=== PATIENT | male | born 1960 | race Caucasian/White ===

== ENCOUNTER 2022-03-18 01:02 | Day surgery (SDC) | payer OTHER, SELFPAY ==
[2022-03-13 12:34] VITALS: BMI 29.0
--- NOTE | 2022-03-13 12:40 | PC.NURSE ---
Report to the Outpatient Waiting Room, entrance under the green pavilion located off [facility], at time 0630 on date 03/18/22. Planned Procedure Time: 0830. Time changes happen often and if your time is changed the preop area will call you the afternoon before. - You and your visitor will be asked to self-screen and do not enter if you have any COVID symptoms. - We encourage only one visitor and NO visitors under age 16 are allowed at this time. Your visitor will receive communication by the phone number that is given day of service. - The patient visitor is requested to social distance or may leave the building when not with patient due to restrictions. - A mask is OPTIONAL within the hospital. Patients may have clear liquids (water, carbonated beverages, clear teas, apple juice) until 3 hours prior to surgery with a maximum of 20 ounces. - No food from midnight until time of surgery Take the following medications with a SIP of water the morning of surgery: NONE Medications to discontinue per physician: VITAMIN Date to take last dose: 03/14/22 Please no make-up, nail pashto, hairspray, perfume, deodorant, or body powder the day of surgery. No jewelry (including any body piercings) or valuables the day of surgery, leave them at home. Please take a shower or bath the night before, or the morning of, surgery with an antibacterial soap. Wear comfortable, loose fitting clothing. - Jewelry must be removed prior to entering the operating room. Rings and piercings that are not removed may be cut off. - The hospital will not accept responsibility for valuables. - Please leave all valuables, including medications, at home the day of surgery. If you are going home after surgery, a licensed hire car driver must drive you home. - NO public transportation without another adult. - We recommend that an adult stay with you for 24 hours following discharge. - We also recommend that you do not drive, make important decision, drink alcoholic beverages, or take any drugs that were not prescribed by your health care provider for at least 24 hours after your discharge time. Follow any additional instructions given to you from your surgeon. If you or anyone in your household have experienced Covid symptoms in the past week, please notify your surgeon or the nurse liaison at the phone number below for possible testing. Telephone instructions given to PT - RONI HODGE and asked if any additional questions and then verbalized understanding. Patient advised to call surgeon office or pre surgery nurse liaison [phone] if any additional questions.
--- NOTE | 2022-03-15 13:53 | WPDANESEPPF ---
Anes - Initial Pre Proc Eval Procedure: Operation Date: 03/18/22 08:30 Proposed Procedures p Right Hallux Metatarsophalangeal Arthrodesis - Joe Kumar MD <Shane Lynn MD - Last Filed: 03/18/22 08:24> Date/Time: 03/15/22 13:53 <Shane Lynn MD - Last Filed: 03/18/22 08:24> Surgeon: Joe Kumar MD <Shane Lynn MD - Last Filed: 03/18/22 08:24> Pre Op Diagnosis: right hallux rigidus, arthritis, sesamoiditis <Shane Lynn MD - Last Filed: 03/18/22 08:24> Patient Data Age: 61 Gender: M Height: 1.68 m Weight: 81.65 kg <Shane Lynn MD - Last Filed: 03/18/22 08:24> Allergies Allergy/AdvReac Type Severity Reaction Status Date / Time Penicillins Allergy Severe Rash Verified 03/18/22 06:37 <Shane Lynn MD - Last Filed: 03/18/22 08:24> Home Medications Medication Instructions Recorded Confirmed Type multivitamin 1 tablet PO DAILY 03/05/22 03/18/22 History pantoprazole 40 mg tablet,delayed 40 mg PO DAILY 03/05/22 03/18/22 History release ropinirole 1 mg tablet 1 mg PO DAILY 03/05/22 03/18/22 History <Shane Lynn MD - Last Filed: 03/18/22 08:24> Patient hx anesthesia problems: none <Sean Caceres MD - Last Filed: 03/18/22 07:43> Family hx anesthesia problems: none <Sean Caceres MD - Last Filed: 03/18/22 07:43> Results Review: All pre-operative results and documents have been reviewed as part of the pre-operative evaluation. <Shane Lynn MD - Last Filed: 03/18/22 08:24> PMFSH Past Medical History Medical History: Medical History Hallux rigidus of left foot Hallux rigidus of right foot Hyperlipidemia Hypertension Restless leg syndrome <Shane Lynn MD - Last Filed: 03/18/22 08:24> Surgical History Surgical History: Surgical History H/O foot surgery Right foot MTP bone spurs 2004 Left foot MTP bone spurs [address] Chiquis Marroquin. History of knee surgery [address] Zuniga History of weight loss surgery Gastric sleeve [address] Interiano <Shane Lynn MD - Last Filed: 03/18/22 08:24> Family History Family History: Family History Other Diabetes mellitus HLD (hyperlipidemia) Heart disease Liver cancer Malignant neoplasm of prostate <Shane Lynn MD - Last Filed: 03/18/22 08:24> Social History Social History: Social History Smoking status: Never smoker Alcohol intake: current Drinks per week: 3 Alcohol use details: WEEKENDS Substance use: never Substance use type: does not use Living arrangements: with family Gender identity (if verbalized by the patient): Male Spiritual care concerns: No <Shane Lynn MD - Last Filed: 03/18/22 08:24> Anes - Eval Final PreProcedure Day of Procedure 03/15/22 13:53 <Shane Lynn MD - Last Filed: 03/18/22 08:24> Patient weight: overweight <Sean Caceres MD - Last Filed: 03/18/22 07:43> Heart: regular rate and rhythm <Sean Caceres MD - Last Filed: 03/18/22 07:43> Lungs: clear to auscultation <Sean Caceres MD - Last Filed: 03/18/22 07:43> Airway: Mallampati scale class II <Sean Caceres MD - Last Filed: 03/18/22 07:43> Neurological: alert and oriented <Sean Caceres MD - Last Filed: 03/18/22 07:43> Last oral intake: >/= 8 hours <Sean Caceres MD - Last Filed: 03/18/22 07:43> ASA classification: III <Sean Caceres MD - Last Filed: 03/18/22 07:43> Emergent: no <Sean Caceres MD - Last Filed: 03/18/22 07:43> Anesthetic plan: proceed <Sean Caceres MD - Last Filed: 03/18/22 07:43> Anesthesia type and monitoring:
[2022-03-18] VITALS (9 sets, daily range): BP systolic 101–144; BP diastolic 61–88; PULSE 50–63; RESP 11–18; TEMP 36.3–36.5; O2SAT 98–100
--- NOTE | ~2022-03-18 | XR_ITS ---
EXAMINATION: XR surgery orthopedic DATE: 03/18/2022 10:35 INDICATION: Right foot arthrodesis at the first metatarsophalangeal joint TECHNIQUE: 2 fluoroscopic images of the right forefoot were obtained during procedure performed by Dr Chiquita Kumar. Radiologist was not present for the imaging or procedure. The amount of fluoroscopy time u sed during this procedure was 0.1 minutes. COMPARISON: None. FINDINGS: First metatarsophalangeal arthrodesis with compression screw and dorsal plate and screw fixation. Exp ected reticular soft tissue gas at the operative bed. Alignment remains essentially anatomic. No frac ture. Remaining joint spaces are normal. IMPRESSION: 1. Expected appearance of a first metatarsophalangeal arthrodesis. See procedure note for further det ail. Reviewed, dictated and finalized at location B. IMPRESSION: 1. Expected appearance of a first metatarsophalangeal arthrodesis. See procedur e note for further detail.
[2022-03-18] MEDS: ACETAMINOPHEN 500 MG TABLET 1000 MG PO (06:56)
--- NOTE | 2022-03-18 07:07 | WPDHPUPDATE1 ---
History and Physical Update Update Date/Time: 03/18/22 07:07 History and Physical has been reviewed, including an updated exam of the patient. There are NO changes in the patient's condition. Risks, benefits, and alternatives have been discussed and questions answered. Patient agrees to proceed with procedure.
[2022-03-18] MEDS: LACTATED RINGERS 1,000 ML 30 ML IV CONT ×2 (07:21→10:08)
[2022-03-18] MEDS: KETOROLAC 15 MG/ML VIAL (*BKC) IV PUSH (07:22)
[2022-03-18] MEDS: ceFAZolin 2 GM/D5W 50 ML 2 GM/50 ML BAG IVPB (08:30)
[2022-03-18] MEDS: BUPIVACAINE HCL 0.5% PF 30 ML VIAL INFILTRATE (09:02)
--- NOTE | 2022-03-18 10:21 | P.OP_ITS ---
Procedure Note - Detailed Date of Procedure 03/18/22 Pre-op Diagnosis right hallux rigidus, arthritis, sesamoiditis Post-op Diagnosis Same Procedure Performed Right hallux metatarsophalangeal arthrodesis Surgeon Joe Kumar MD Finisher Card Tender 1st civil engineering assistant Anesthesia General Indications 61-year-old gentleman with right hallux metatarsophalangeal arthritis. Failed cheilectomy previous surgery. Pain with daily weight-bearing and activity. Presents for operative treatment. Description of Procedure Patient identified in the preoperative holding. Informed consent given. Operative extremity marked. Patient received intravenous antibiotics. Patient brought to the operating room where underwent general anesthetic by anesthesia team. Positioned supine on operating room table. Time-out performed confirming the patient, site of the surgery and the plan. Right foot prepped draped usual sterile surgical fashion using a ChloraPrep skin solution. Foot and ankle exsanguinated and a calf tourniquet inflated to 225 mmHg. Previous incision over the hallux utilized and made with a 15 blade knife. Hemostasis controlled electrocautery. Extensor hallucis tendon retracted laterally and a dorsal capsulotomy performed in line with the longitudinal skin incision. Soft tissue released off of the metatarsal to expose the joint. Extensive scar and fibrosis of the joint noted. Rongeur used to remove excess osteophytes. Reaming of the joint and performed the Arthrex joint preparation reamers. Guide pin placed metatarsal and reaming performed size 18 mm. Guide pin then placed in the proximal phalanx and reaming performed to a size 18 mm. Wound thoroughly irrigated and debris removed. Joint then aligned and provisionally pinned. Alignment checked with image intensification 3rd fixation achieved with a dorsal locking plate with compression and a 3 mm lag screw. Image intensification confirmed final position. Wound irrigated and capsule closed with 0 Vicryl interrupted suture. Subcutaneous tissue repaired with 3-0 Monocryl interrupted suture and skin repaired with 4-0 nylon running suture. Sterile dressing applied. The patient was then woken from anesthesia, extubated and taken to the recovery room in stable condition. All sponge, needle, instrument counts were correct at the end of the case. Implants Arthrex hallux metatarsophalangeal arthrodesis plate with mixed 3.0 plain and locking screws. 3.0 mm lag screw compression. Estimated Blood Loss -5.0 Tourniquet Time 67 Drains No Packing No Pathology None sent Complications None Condition Stable Disposition PACU
--- NOTE | 2022-03-18 10:54 | SUR.PHASEI ---
1045: Simple mask removed.
[2022-03-18] MEDS: oxyCODONE HCL (*CRX) 5 MG TAB IR PO (11:47)
--- NOTE | 2022-03-18 12:36 | SUR.PHASEII ---
POST-OP SHOE REQUESTED FROM [employer]. CRUTCHES GIVEN TO PATIENT.
== END 2022-03-18 13:00 | disposition home or self-care (01) ==
PROVIDERS: PCP Family Medicine; Visit Provider Orthopaedic Surgery
PROC: (CPT 28750; principal; 2022-03-18 08:30)
DX: M20.21 Hallux rigidus, right foot (principal); M19.071 Primary osteoarthritis, right ankle and foot; M25.871 Other specified joint disorders, right ankle and foot; G25.81 Restless legs syndrome; Z98.84 Bariatric surgery status
CPT/HCPCS: 28750; 99199; A9270; J0690; J1100; J1885; J2250; J2370; J2405; J2704; J3010; J7120

== ENCOUNTER 2022-04-25 00:36 | Day surgery (SDC) | payer OTHER, SELFPAY ==
--- NOTE | 2022-04-15 14:53 | PC.NURSE ---
Report to the Outpatient Waiting Room, entrance under the green pavilion located off [facility], at time 0600 on date 04/25/22. Planned Procedure Time: 0800. Time changes happen often and if your time is changed the preop area will call you the afternoon before. - You and your visitor will be asked to self-screen and do not enter if you have any COVID symptoms. - Only one visitor is requested with a max of two and NO children visitors are allowed at this time. - The patient visitor may be requested to leave or wait in car when not with patient due to distancing restrictions. - A mask is optional within the hospital. Patients may have clear liquids (water, carbonated beverages, clear teas, apple juice) until 3 hours prior to surgery with a maximum of 20 ounces. - No food from midnight until time of surgery Take the following medications with a SIP of water the morning of surgery: NONE Medications to discontinue per physician: VITAMIN Date to take last dose: 04/21/22 Please no make-up, nail estonian, hairspray, perfume, deodorant, or body powder the day of surgery. No jewelry (including any body piercings) or valuables the day of surgery, leave them at home. Please take a shower or bath the night before, or the morning of, surgery with an antibacterial soap. Wear comfortable, loose fitting clothing. - Jewelry must be removed prior to entering the operating room. Rings and piercings that are not removed may be cut off. - The hospital will not accept responsibility for valuables. - Please leave all valuables, including medications, at home the day of surgery. If you are going home after surgery, a licensed bus driver supervisor must drive you home. - NO public transportation without another adult if you receive anesthesia. - We recommend that an adult stay with you for 24 hours following discharge. - We also recommend that you do not drive, make important decision, drink alcoholic beverages, or take any drugs that were not prescribed by your health care provider for at least 24 hours after your discharge time. Follow any additional instructions given to you from your surgeon. If you or anyone in your household have experienced Covid symptoms in the past week, please notify your surgeon or the nurse liaison at the phone number below for possible testing. Telephone instructions given to PT - RONI HODGE and asked if any additional questions and then verbalized understanding. Patient advised to call surgeon office or pre surgery nurse liaison [phone] if any additional questions.
[2022-04-15 14:55] VITALS: BMI 29.1
[2022-04-25] VITALS (8 sets, daily range): BP systolic 106–146; BP diastolic 63–82; PULSE 64–77; RESP 12–20; TEMP 36.8–36.9; O2SAT 100
--- NOTE | ~2022-04-25 | XR_ITS ---
XR surgery orthopedic DATE: 04/25/2022 09:46 INDICATION: Metatarsophalangeal arthrodesis at first digit TECHNIQUE: 8 cm total fluoroscopy excluded on 0.7790 cGycm2 total DAP COMPARISON: None FINDINGS: Status post surgical arthrodesis at first metatarsophalangeal joint with dorsal plate and s crews an additional screw. IMPRESSION: First metatarsophalangeal joint arthrodesis Reviewed, dictated and finalized at Location A. Reviewed, dictated and finalized at location B. S CATCHER
[2022-04-25] MEDS: ACETAMINOPHEN 500 MG TABLET 1000 MG PO (06:30)
[2022-04-25] MEDS: LACTATED RINGERS 1,000 ML 30 ML IV CONT ×2 (06:30→10:02)
[2022-04-25] MEDS: KETOROLAC 15 MG/ML VIAL (*BKC) IV PUSH (06:32)
--- NOTE | 2022-04-25 06:36 | WPDHPUPDATE1 ---
History and Physical Update Update Date/Time: 04/25/22 06:36 History and Physical has been reviewed, including an updated exam of the patient. There are NO changes in the patient's condition. Risks, benefits, and alternatives have been discussed and questions answered. Patient agrees to proceed with procedure.
--- NOTE | 2022-04-25 06:47 | WPDANESEPPF ---
Anes - Initial Pre Proc Eval Procedure: Operation Date: 04/25/22 08:00 Proposed Procedures p Left Foot Hallux Metatarsophalangeal Arthrodesis - Joe Kumar MD Date/Time: 04/25/22 06:47 Surgeon: Joe Kumar MD Pre Op Diagnosis: left hallux rigidus, arthritis, sesamoiditis Patient Data Age: 62 Gender: M Height: 1.68 m Weight: 81.9 kg Allergies Allergy/AdvReac Type Severity Reaction Status Date / Time Penicillins Allergy Severe Rash Verified 04/15/22 14:51 Home Medications Medication Instructions Recorded Confirmed Type multivitamin 1 tablet PO DAILY 03/05/22 04/15/22 History pantoprazole 40 mg tablet,delayed 40 mg PO DAILY 03/05/22 04/15/22 History release ropinirole 1 mg tablet 1 mg PO DAILY 03/05/22 04/15/22 History Patient hx anesthesia problems: none Family hx anesthesia problems: none Results Review: All pre-operative results and documents have been reviewed as part of the pre-operative evaluation. [facility] Past Medical History Medical History (Updated 04/25/22 @ 06:48 by Sean Caceres MD) Encounter for postoperative care Hallux rigidus of left foot Hallux rigidus of right foot Restless leg syndrome Surgical History Surgical History H/O foot surgery Right foot MTP bone spurs 2004 Left foot MTP bone spurs [address] Chiquis Marroquin. History of knee surgery [address] Zuniga History of weight loss surgery Gastric sleeve [address] Interiano Family History Family History Other Diabetes mellitus HLD (hyperlipidemia) Heart disease Liver cancer Malignant neoplasm of prostate Social History Social History Smoking status: Never smoker Alcohol intake: current Drinks per week: 3 Alcohol use details: WEEKENDS Substance use: never Substance use type: does not use Living arrangements: with family Gender identity (if verbalized by the patient): Male Spiritual care concerns: No Anes - Eval Final PreProcedure Day of Procedure 04/25/22 06:47 Patient weight: overweight Heart: regular rate and rhythm Lungs: clear to auscultation Airway: Mallampati scale class II Neurological: alert and oriented Last oral intake: >/= 8 hours ASA classification: II Emergent: no Anesthetic plan: proceed Anesthesia type and monitoring: general LMA and standard monitoring Results Review: All pre-operative results and documents have been reviewed as part of the pre-operative evaluation. Informed Consent: The patient's anesthetic plan and its attendant risks and benefits were discussed with the patient/family/POA. Questions were solicited and answers provided to the satisfaction of the patient/family/POA.
--- NOTE | 2022-04-25 07:08 | SUR.PREOP ---
PT STATES HE HAS CRUTCHES AND IS PROFICIENT IN USING THEM, STATES HE HAS USED THE INCENTIVE SPIROMETER , NEW INCENTIVE GIVEN.
[2022-04-25] MEDS: ceFAZolin 2 GM/D5W 50 ML 2 GM/50 ML BAG IVPB (08:32)
[2022-04-25] MEDS: BUPIVACAINE HCL 0.5% PF 30 ML VIAL INFILTRATE (09:04)
--- NOTE | 2022-04-25 10:23 | W.PM.PROC2 ---
Procedure Note - Detailed Date of Procedure 04/25/22 Pre-op Diagnosis left hallux rigidus, arthritis, sesamoiditis Post-op Diagnosis Same Procedure Performed Left hallux metatarsophalangeal arthrodesis Surgeon Joe Kumar MD Elevator Operator 1st prosthetics assistant Anesthesia General Indications 62-year-old with left hallux rigidus and degenerative changes. Status post surgery. Pain with activity and shoe wear. Presents now for operative treatment. Description of Procedure Patient identified in the preoperative holding.? Informed consent given.? Operative extremity marked.? Patient received intravenous antibiotics.? Patient brought to the operating room where underwent general anesthetic by anesthesia team.? Positioned supine on operating room table.? Time-out performed confirming the patient, site of the surgery and the plan.? Left foot prepped draped usual sterile surgical fashion using a ChloraPrep skin solution.? Foot and ankle exsanguinated and a calf tourniquet inflated to 225 mmHg.? Previous incision over the hallux utilized and made with a 15 blade knife.? Hemostasis controlled electrocautery.? Extensor hallucis tendon retracted laterally and a dorsal capsulotomy performed in line with the longitudinal skin incision.? Soft tissue released off of the metatarsal to expose the joint.? Extensive scar and fibrosis of the joint noted.? Rongeur used to remove excess osteophytes.? Reaming of the joint and performed the Arthrex joint preparation reamers.? Guide pin placed metatarsal and reaming performed size 18 mm.? Guide pin then placed in the proximal phalanx and reaming performed to a size 18 mm.? Wound thoroughly irrigated and debris removed.? Joint then aligned and provisionally pinned.? Alignment checked with image intensification 3rd fixation achieved with a dorsal locking plate with compression and a 3.5 mm lag screw.? Image intensification confirmed final position.? Wound irrigated and capsule closed with 0 Vicryl interrupted suture.? Subcutaneous tissue repaired with 3-0 Monocryl interrupted suture and skin repaired with 4-0 nylon running suture. Sterile dressing applied.? The patient was then woken from anesthesia, extubated and taken to the recovery room in stable condition.? All sponge, needle, instrument counts were correct at the end of the case. Implants Arthrex hallux MTP arthrodesis plate and screws, 3.5 mm cannulated screw x1. Estimated Blood Loss 5 Tourniquet Time 45 Drains No Packing No Pathology None sent Complications None Condition Stable Disposition PACU
[2022-04-25] MEDS: oxyCODONE HCL (*CRX) 5 MG TAB IR PO (11:49)
== END 2022-04-25 12:10 | disposition home or self-care (01) ==
PROVIDERS: PCP Family Medicine; Visit Provider Orthopaedic Surgery
PROC: (CPT 28750; principal; 2022-04-25 08:00)
DX: M20.22 Hallux rigidus, left foot (principal); M25.872 Other specified joint disorders, left ankle and foot; M19.072 Primary osteoarthritis, left ankle and foot; G25.81 Restless legs syndrome
CPT/HCPCS: 28750; 99199; A9270; C1713; C1769; J0690; J1100; J1885; J2250; J2405; J2704; J3010; J7120